=== PATIENT | male | born 1995 | race Caucasian/White ===

== ENCOUNTER 2018-08-01 16:01 | Emergency (ER) | payer OTHER ==
--- NOTE | 2018-08-01 16:31 | EDPHY ---
H & P Stated Complaint: left upper cp neck pain for 1.5 hours . Saw [facility] and referred Time Seen by Provider: 08/01/18 16:04 HPI/ROS: This patient reports a 90 min of sharp left upper chest pain pleuritic in nature -worse with a deep breath 7/10 intensity, onset 90 min prior to arrival at rest. He initially presented to the urgent care clinic who then referred him on to our emergency department. He came in by private vehicle. He notes no other exacerbating factors to the pain other than worsening with a deep breath. The pain has been constant since its onset and nonradiating. He did have 1 episode of emesis this morning the attributes to overindulgence alcohol over the weekend stretching into yesterday evening to celebrate a bachelor democrat. He reports associated diaphoresis with his pain. He notes no other associated symptoms. ROS: Constitutional: He has noticed any fevers or chills. No fatigue. HEENT: No URI symptoms or other complaints new line pulmonary: No dyspnea. No coughing. Cardiovascular: No heart palpitations or lightheadedness. No leg swelling or pain. GI: He denies any abdominal pain. No hematemesis or coffee-ground emesis. : No complaints integumentary: No skin rash. Positive diaphoresis Heme: No complaints Neuro: No complaints Psychiatric: No complaints Complete review of symptoms otherwise negative Source: Patient Exam Limitations: No limitations - Medical/Surgical History Hx Chronic Respiratory Disease: No Hx Diabetes: No Hx Cardiac Disease: No Hx Renal Disease: No Hx Cirrhosis: No Hx Alcoholism: No Hx HIV/AIDS: No Hx Splenectomy or Spleen Trauma: No Other PMH: hernia. wrist repair. depression - Family History Significant Family History: No pertinent family hx - Social History Smoking Status: Former smoker Alcohol Use: Other (He reports 2-3 beers a day on average with heavy drinking this past weekend) Drug Use: Marijuana, Other (He denies any drug use other than marijuana) - Physical Exam Exam: General Appearance: Pleasant moderately obese 24-year-old male Alert, no distress. Eyes: Pupils equal and round no pallor or injection. ENT, Mouth: Mucous membranes moist. Respiratory: There are no retractions, lungs are clear to auscultation. Cardiovascular: Regular rate and rhythm. No murmur gallop rub. No JV D. No peripheral edema. Gastrointestinal: Abdomen is soft and nontender, no masses, bowel sounds normal. Neurological: GCS 15 Skin: Warm and dry, no rashes. Musculoskeletal: Neck is supple nontender. Extremities are symmetrical, full range of motion. Psychiatric: Mood and affect are normal DIFFERENTIAL DIAGNOSIS: After history and physical exam differential diagnosis was considered for pneumonia, doubt Boerhaave this, pneumothorax, pulmonary embolism, myocardial ischemic disease, musculoskeletal source of pain Constitutional: Initial Vital Signs Temperature (C) 37.0 C 08/01/18 16:05 Heart Rate 62 08/01/18 16:05 Respiratory Rate 16 08/01/18 16:05 Blood Pressure 135/79 H 08/01/18 16:05 O2 Sat (%) 95 08/01/18 16:05 O2 Delivery Mode Room Air Allergies/Adverse Reactions: amoxicillin Allergy (Verified 08/01/18 16:11) Home Medications: Medication Instructions Recorded Pantoprazole Sodium [Protonix 40mg 40 mg PO DAILY #14 tab 08/01/18 (*)] Prozac 20 MG (*) 08/01/18 Wellbutrin Sr 08/01/18 Medical Decision Making - Diagnostics EKG Interpretation: 12 lead EKG performed shortly after arrival at 4:18 p.m., indication chest pain Sinus rhythm at 58 Intervals: Normal throughout ST segments: Normal throughout [place]: Normal Overall assessment normal EKG Imaging Results: Imaging Impressions Chest X-Ray 08/01/18 16:27 Impression: No significant radiographic abnormality. Specifically, a source for chest pain is not identified. Two view chest x-ray: Normal by my interpretation Imaging: I viewed and interpreted images myself ED Course/Re-evaluation: IV, monitor, aspirin PO, Toradol IV with only minimal improvement to 6/10 discomfort This is followed by Maalox, Levsin and Tylenol with further improvement down to mild discomfort. Discussion: 23-year-old male presents with chest pain after vomiting and after binge drinking for a week and celebration. I suspect that he has esophagitis or small Niru-Hanley tear contributing to his symptoms. No evidence of Boerhaave given lack of fever significant toxicity, no Vaz's crunch etc. No evidence of myocardial ischemic disease after workup, effectively ruled out PE with low risk and negative D-dimer. Also ruled out pneumothorax with the had normal chest x-ray and no evidence of pneumonia. Pleurisy is also consideration in this patient given that the symptoms worsened a bit with a deep breath. I counseled regarding this. He will start an antacid for the next week to 10 days with plan to use Maalox in addition as needed, stop drinking for the next week or more until symptoms resolve and follow up with primary care physician for any ongoing symptoms. Understands need to return for any significant worsening despite the treatment plan. - Data Points Laboratory Results: 08/01/18 08/01/18 16:46 16:44 POC Sodium 145 mEq/L mEq/L (135-145) POC Potassium 3.6 mEq/L mEq/L (3.3-5.0) POC Chloride 101.0 mEq/L mEq/L (97-110) POC Total CO2 25 mEq/L mEq/L (22-31) POC BUN 11 mg/dL mg/dL (7-23) POC Creatinine 0.8 mg/dL mg/dL (0.7-1.3) POC Glucose 92 mg/dL mg/dL (70-100) POC Calcium 10.1 mg/dL mg/dL (8.5-10.4) POC Troponin I 0.00 ng/mL ng/mL (0.00-0.08) The patient's D-dimer is also normal, CBC is normal Medications Given: Discontinued Medications Acetaminophen (Tylenol) 1,000 mg PO EDNOW ONE Stop: 08/01/18 17:57 Last Admin: 08/01/18 18:14 Dose: 1,000 mg Al Hydroxide/Mg Hydroxide (Maalox Susp) 30 ml PO EDNOW ONE Stop: 08/01/18 17:32 Last Admin: 08/01/18 17:35 Dose: 30 ml Aspirin (Aspirin) 324 mg PO EDNOW ONE Stop: 08/01/18 16:33 Last Admin: 08/01/18 17:06 Dose: 324 mg Hyoscyamine Sulfate (Levsin, Hyomax-Sl) 0.125 mg PO EDNOW ONE Stop: 08/01/18 17:32 Last Admin: 08/01/18 17:36 Dose: 0.125 mg Ketorolac Tromethamine (Toradol) 15 mg IVP EDNOW ONE Stop: 08/01/18 16:33 Last Admin: 08/01/18 17:07 Dose: 15 mg Point of Care Test Results: CBC CBC Collection Date 08/01/18 CBC Collection Time 17:32 WBC 5.1 RBC 5.06 HGB 16.0 HCT 48.2 PLT 211 Neut # 3.6 Neut 71.3 LYMPH # 1.3 LYMPH 25.3 Other WBC # 0.2 Other WBC 3.4 MCV 95.3 Chemistry 08/01/18 08/01/18 16:46 16:44 POC Sodium 145 mEq/L mEq/L (135-145) POC Potassium 3.6 mEq/L mEq/L (3.3-5.0) POC Chloride 101.0 mEq/L mEq/L (97-110) POC Total CO2 25 mEq/L mEq/L (22-31) POC BUN 11 mg/dL mg/dL (7-23) POC Creatinine 0.8 mg/dL mg/dL (0.7-1.3) POC Glucose 92 mg/dL mg/dL (70-100) POC Calcium 10.1 mg/dL mg/dL (8.5-10.4) POC Troponin I 0.00 ng/mL ng/mL (0.00-0.08) D-Dimer D-Dimer Collection Date 08/01/18 D-Dimer Collection Time 17:32 D-Dimer (ng/ml) 150ng/ml Departure - Departure Disposition: Home, Routine, Self-Care Clinical Impression: Chest pain Qualifiers: Chest pain type: chest pain on breathing Qualified Code(s): R07.1 - Chest pain on breathing Vomiting Qualifiers: Vomiting type: unspecified Vomiting Intractability: non-intractable Nausea presence: unspecified Qualified Code(s): R11.10 - Vomiting, unspecified Condition: Good Instructions: Pantoprazole (By mouth), Chest Pain (ED), Esophagitis (ED) Additional Instructions: Diagnosis: Chest pain Tonight your labs including D-dimer and heart enzyme call troponin are normal. Her chest x-ray is normal. Your EKG was normal. It is likely that you have esophageal inflammation (esophagitis) or inflammation lining around the lung (pleurisy) causing your pain. Plan: Have a bland diet until he feel improved Protonix acid eboni for the next 7-14 days Maalox in addition if needed Tylenol in addition if needed for pain Stop alcohol until your symptoms improve Follow up with Dr. Johnson or primary care physician of her choice for recheck in 5-7 days for any ongoing symptoms Return emergency department for any significant worsening despite the treatment plan, or if he developed additional symptoms such as shortness of breath. Referrals: NONE *PRIMARY CARE P,. [Primary Care Provider] - As per Instructions Christopher Johnson MD [Medical Doctor] - As per Instructions Prescriptions: Pantoprazole Sodium [Protonix 40mg (*)] 40 mg PO DAILY #14 tab
[2018-08-01] MEDS ORDERED: ASPIRIN 81 MG CHEWABLE TAB PO ONE (16:32)
[2018-08-01] MEDS ORDERED: KETOROLAC 15 MG/1 ML SDV IVP ONE (16:32)
[2018-08-01] MEDS ORDERED: HYOSCYAMINE SULFATE 0.125 MG TAB PO ONE (17:31)
[2018-08-01] MEDS ORDERED: MAG HYDROX/AL HYDROX/SIMETH 30 ML UDCUP PO ONE (17:31)
[2018-08-01] MEDS ORDERED: ACETAMINOPHEN 500 MG TAB PO ONE (17:56)
[2018-08-01 18:28] VITALS: BP 140/78
--- NOTE | 2018-08-01 18:40 | CPEKG ---
Test Reason : OPEN Blood Pressure : / mmHG Vent. Rate : 058 BPM Atrial Rate : 061 BPM P-R Int : 143 ms QRS Dur : 096 ms QT Int : 437 ms P-R-T Axes : 012 058 013 degrees QTc Int : 430 ms Sinus rhythm Confirmed by Roel Roberts ([id number]) on 08/01/2018 6:39:45 PM Referred By: Confirmed By:Roel Roberts
== END 2018-08-01 18:21 | disposition home or self-care (01) ==
LOC: CED 16:01
DX: R07.1 Chest pain on breathing (principal); R11.10 Vomiting, unspecified; Z87.891 Personal history of nicotine dependence
CPT/HCPCS: 71046-PO; 80048-PO; 84484-PO; 96374; J1885